=== PATIENT | female | born 1935 | race Caucasian/White ===

== ENCOUNTER 2019-10-27 11:31 | Emergency (ER) | payer OTHER ==
[~2019-10-27] VITALS: Ht 162.6 cm; Wt 49.2 kg
[~2019-10-27 11:31] MED LIST: ADVIL MIGRAINE200 M1 PO; ASPIR 8181 MG PO; COQ-10100 MG PO; COZAAR100 MG PO; DIAZEPAM2 MG PO; FISH OIL 1,001000 M2 PO; FLONASE 0.05%50 MCG NASAL; HYDROCODON-ACE1 EAC7 PO; LEVOTHYROXIN0.075 MG PO; LEVOTHYROXINE0.05 MG PO; MULTI VITAMIN1 EACH PO; PREDNISONE 10 M10 MG PO; TYLENOL325 MG PO; UNICOMPLEX M TA1 TA1; VICODIN 5-3001 EACH
[2019-10-27 11:51] LABS: HEMATOCRIT 34.8 % (37.0-47.0); HEMOGLOBIN 11.4 gm/dL (12.0-15.0); MCH 30.7 pg (26.0-34.0); MCHC 32.9 g/dL (28.0-37.0); MCV 93.5 fL (80.0-100.0); PLATELET COUNT 246 thou/uL (150-400); RBC 3.72 mil/uL (4.20-5.00); RDW 13.3 % (10.5-14.5); WBC 3.6 thou/uL (4.0-11.0)
[2019-10-27 12:11] LABS: ANION GAP 7 mmol/L (7-16); BUN 25 mg/dL (7-18); CALCIUM 9.2 mg/dL (8.5-10.1); CHLORIDE 102 mmol/L (98-107); CO2 30 mmol/L (21-32); CREATININE 1.4 mg/dL (0.6-1.0); GLUCOSE 163 mg/dL (74-106); POTASSIUM 3.8 mmol/L (3.5-5.1); SODIUM 139 mmol/L (136-145)
[2019-10-27 12:22] LABS: ALBUMIN 3.3 g/dL (3.4-5.0); SGOT 27 U/L (15-37); SGPT 22 U/L (30-65); TOTAL BILIRUBIN 0.4 mg/dL (0.2-1.0); TOTAL PROTEIN 6.8 g/dL (6.4-8.2); TROPONIN-I <0.06 ng/mL (<0.06)
[2019-10-27 13:02] LABS: APTT 30.6 Seconds (24.5-32.8); PROTIME 10.2 Seconds (9.3-11.4)
[2019-10-27 13:30] LABS: ABSOLUTE NEUTROPHILS 2.6 thou/uL (1.4-8.2); PLATELET ESTIMATE NORMAL
[2019-10-27 13:42] LABS: URINE BILIRUBIN NEGATIVE (Negative); URINE BLOOD NEGATIVE (Negative); URINE CLARITY CLEAR; URINE COLOR YELLOW; URINE GLUCOSE-RANDOM* NEGATIVE (Negative); URINE KETONES NEGATIVE (Negative); URINE LEUKOCYTES-REFLEX 1+ (Negative); URINE NITRITE-REFLEX NEGATIVE (Negative); URINE PROTEIN (DIPSTICK) NEGATIVE (Negative); URINE UROBILINOGEN 0.2 E.U./dl (0.2-1.0)
[2019-10-27 13:54] LABS: BACTERIA-REFLEX 1-9 Few /HPF (None Seen); CASTS None Seen /LPF (None Seen); CRYSTALS None Seen /LPF (None Seen); SQUAMOUS 4-10 Moderate /LPF (0-3); URINE RBC 3-10 Few /HPF (0-2); URINE WBC-REFLEX 0-5 Rare /HPF (0-5)
[2019-10-27 15:31] VITALS: BP 131/53
== END 2019-10-27 15:32 | disposition home or self-care (01) ==
LOC: ER 11:31
PROVIDERS: Emergency Medicine
DX: S30.1XXA Contusion of abdominal wall, initial encounter (principal); D64.9 Anemia, unspecified; D72.819 Decreased white blood cell count, unspecified; R73.9 Hyperglycemia, unspecified; I12.9 Hypertensive chronic kidney disease with stage 1 through stage 4 chronic kidney disease, or unspecified chronic kidney disease; N18.9 Chronic kidney disease, unspecified; E03.9 Hypothyroidism, unspecified; E78.5 Hyperlipidemia, unspecified; Z95.1 Presence of aortocoronary bypass graft; Z90.710 Acquired absence of both cervix and uterus; Z79.82 Long term (current) use of aspirin; Z79.899 Other long term (current) drug therapy; Z88.1 Allergy status to other antibiotic agents; Z88.2 Allergy status to sulfonamides; Z88.8 Allergy status to other drugs, medicaments and biological substances; Z91.041 Radiographic dye allergy status; X58.XXXA Exposure to other specified factors, initial encounter; Y93.89 Activity, other specified; Y92.89 Other specified places as the place of occurrence of the external cause; Y99.8 Other external cause status

== ENCOUNTER 2019-11-06 22:45 | Emergency (ER) | payer OTHER ==
[~2019-11-06] VITALS: Ht 162.6 cm; Wt 54.4 kg
[2019-11-06 23:28] LABS: ABSOLUTE NEUTROPHILS 9.5 thou/uL (1.4-8.2); BASOPHILS 0.2 % (0.0-2.0); EOSINOPHILS 1.1 % (0.0-3.0); HEMATOCRIT 38.1 % (37.0-47.0); HEMOGLOBIN 12.7 gm/dL (12.0-15.0); LYMPHOCYTES 4.2 % (24.0-44.0); MCH 30.6 pg (26.0-34.0); MCHC 33.4 g/dL (28.0-37.0); MCV 91.8 fL (80.0-100.0); MONOCYTES 6.7 % (1.0-8.0); PLATELET COUNT 371 thou/uL (150-400); POLYS 87.8 % (36.0-66.0); RBC 4.15 mil/uL (4.20-5.00); WBC 10.9 thou/uL (4.0-11.0)
[2019-11-06 23:32] LABS: CALCIUM 8.6 mg/dL (8.5-10.1); CREATININE 1.6 mg/dL (0.6-1.0); POTASSIUM 4.6 mmol/L (3.5-5.1)
[2019-11-06 23:40] LABS: URINE BILIRUBIN NEGATIVE (Negative); URINE BLOOD NEGATIVE (Negative); URINE CLARITY CLEAR; URINE COLOR YELLOW; URINE GLUCOSE-RANDOM* NEGATIVE (Negative); URINE KETONES 1+ (Negative); URINE LEUKOCYTES-REFLEX NEGATIVE (Negative); URINE NITRITE-REFLEX NEGATIVE (Negative); URINE PROTEIN (DIPSTICK) 1+ (Negative); URINE SPECIFIC GRAVITY 1.015 (1.005-1.035); URINE UROBILINOGEN 0.2 E.U./dl (0.2-1.0)
[2019-11-07 00:32] LABS: BACTERIA-REFLEX 1-9 Few /HPF (None Seen); CRYSTALS None Seen /LPF (None Seen); HYALINE CASTS 4-10 Moderate /LPF (None Seen); MUCUS 4-6 Moderate strn/LPF (None Seen); SQUAMOUS 0-3 Few /LPF (0-3); URINE RBC 0-2 Rare /HPF (0-2); URINE WBC-REFLEX 0-5 Rare /HPF (0-5)
[2019-11-07 03:59] VITALS: BP 103/47
== END 2019-11-07 03:50 | disposition home or self-care (01) ==
LOC: ER 22:45
PROVIDERS: Emergency Medicine
DX: U07.1 COVID-19 (principal); R41.0 Disorientation, unspecified; M79.672 Pain in left foot; E03.9 Hypothyroidism, unspecified; I10 Essential (primary) hypertension; E78.5 Hyperlipidemia, unspecified; F41.9 Anxiety disorder, unspecified; Z88.1 Allergy status to other antibiotic agents; Z91.040 Latex allergy status; Z90.711 Acquired absence of uterus with remaining cervical stump; Z98.61 Coronary angioplasty status; Z79.899 Other long term (current) drug therapy; Z88.2 Allergy status to sulfonamides

== ENCOUNTER 2020-07-23 11:33 | Inpatient (IN) | payer OTHER ==
[~2020-07-23] VITALS: Ht 167.6 cm; Wt 55.1 kg
[2020-07-23 11:40] VITALS: BP 106/55
[2020-07-23 12:22] LABS: ABSOLUTE NEUTROPHILS 8.2 thou/uL (1.4-8.2); BASOPHILS 0.2 % (0.0-2.0); EOSINOPHILS 2.6 % (0.0-3.0); HEMATOCRIT 39.7 % (37.0-47.0); HEMOGLOBIN 13.1 gm/dL (12.0-15.0); LYMPHOCYTES 1.8 % (24.0-44.0); MCH 29.8 pg (26.0-34.0); MCV 90.5 fL (80.0-100.0); MONOCYTES 4.8 % (1.0-8.0); PLATELET COUNT 199 thou/uL (150-400); POLYS 90.6 % (36.0-66.0); RBC 4.39 mil/uL (4.20-5.00); RDW 14.3 % (10.5-14.5); WBC 9.1 thou/uL (4.0-11.0)
[2020-07-23 12:30] LABS: CALCIUM 7.9 mg/dL (8.5-10.1); CREATININE 1.5 mg/dL (0.6-1.0); POTASSIUM 3.5 mmol/L (3.5-5.1)
[2020-07-23 12:36] LABS: ALBUMIN 2.5 g/dL (3.4-5.0); TOTAL BILIRUBIN 0.5 mg/dL (0.2-1.0); TOTAL PROTEIN 5.8 g/dL (6.4-8.2)
[2020-07-23 13:03] LABS: URINE BILIRUBIN NEGATIVE (Negative); URINE BLOOD 3+ (Negative); URINE COLOR YELLOW; URINE GLUCOSE-RANDOM* NEGATIVE (Negative); URINE KETONES NEGATIVE (Negative); URINE NITRITE-REFLEX NEGATIVE (Negative); URINE PROTEIN (DIPSTICK) 2+ (Negative); URINE SPECIFIC GRAVITY 1.025 (1.005-1.035); URINE UROBILINOGEN 0.2 E.U./dl (0.2-1.0)
[2020-07-23 13:04] LABS: URINE CLARITY CLOUDY; URINE LEUKOCYTES-REFLEX 2+ (Negative)
[2020-07-23 13:16] LABS: SQUAMOUS 4-10 Moderate /LPF (0-3)
[2020-07-23 13:17] LABS: COARSE GRANULAR CASTS 0-3 Few /LPF (None Seen); MUCUS 4-6 Moderate strn/LPF (None Seen)
[2020-07-23 13:18] LABS: CRYSTALS None Seen /LPF (None Seen); URINE RBC 0-2 Rare /HPF (0-2); URINE WBC-REFLEX >25 Many /HPF (0-5); WBC CLUMPS Packed (None Seen)
[2020-07-23 15:01] VITALS: BP 113/61
[2020-07-23] MEDS ORDERED: PRALUENT P75 MG/1 ML SUBQ (15:40)
[2020-07-23] MEDS ORDERED: CARVEDILOL12.5 MG PO (15:41)
[2020-07-23] MEDS ORDERED: FUROSEMIDE 20 M20 M1 PO (15:41)
[2020-07-23] MEDS ORDERED: DIAZEPAM2 MG PO (15:41)
[2020-07-23] MEDS ORDERED: GABAPENTIN 100100 MG PO (15:42)
[2020-07-23 15:43] VITALS: BP 124/63
[2020-07-23 16:11] VITALS: BP 139/83
--- NOTE | 2020-07-23 16:57 | EKG ---
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 : 1935 Requested By: Shayla Lam Order Number: [id number] MD: Armando Subramanian Measurements Intervals [place] Rate: 81 P: -6 MA: 202 QRS: 44 QRSD: 96 T: 29 QT: 369 QTc: 429 Interpretive Statements Sinus rhythm Atrial premature complex Probable anteroseptal infarct, old Compared to ECG 08/22/2013 16:03:08 Atrial premature complex(es) now present Septal Q waves are now present Electronically Signed On 07-23-2020 16:57:47 CDT by Armando Subramanian [email or web address] <ELECTRONICALLY SIGNED> By: Armando Subramanian MD, [facility] 07/23/20 1657 1242 [id number] Armando Subramanian MD, [facility] /EPI
[2020-07-23 19:43] VITALS: BP 118/70
--- NOTE | 2020-07-23 19:49 | NUR ---
RECEIVED PT FROM ER. PT IS AXOX4, FORGETFUL, DENIES PAIN. ADMISSION COMPLETED. PT NEEDS REINFORCEMENT OF USING CALL LIGHT TO TOILET. PT UP X1 TO BSC. VSS, AFEBRILE, SR ON MONITOR. FALL PRECAUTIONS IN PLACE. POC IS TO MONITOR VS, CONTINUE ABX PROTOCOL FOR INFECTION. NO CONCERNS AT THIS TIME.
[2020-07-23 23:35] VITALS: BP 134/73
--- NOTE | 2020-07-24 00:48 | NUR ---
2345 SPOKE WITH SON GEOFF FOR 15 MIN. PATIENT OK TO GIVE CODE AND TALK WITH SON.
[2020-07-24 03:32] VITALS: BP 104/52
--- NOTE | 2020-07-24 04:10 | NUR ---
SLEPT MOST OF SHIFT. DENIES COMPLAINTS OF PAIN OR SHORTNESS OF AIR. ASSIST UP TO COMODE NEEDED FOR SAFETY. WORKING ON GOALS AND PLAN OF CARE FOR NOC. REMAINS ORIENTED X4 BUT FORGETFULL. PROGRESSING TOWARDS DISCHARGE GOALS SLOWLY. CONTINUE TO ASSES CLOSELY. MAINTAIN SAFETY.
[2020-07-24 04:11] LABS: CALCIUM 7.2 mg/dL (8.5-10.1); CREATININE 1.1 mg/dL (0.6-1.0); POTASSIUM 3.2 mmol/L (3.5-5.1)
[2020-07-24 04:42] LABS: HEMATOCRIT 34.7 % (37.0-47.0); HEMOGLOBIN 11.4 gm/dL (12.0-15.0); MCH 29.7 pg (26.0-34.0); MCHC 32.9 g/dL (28.0-37.0); MCV 90.4 fL (80.0-100.0); RBC 3.83 mil/uL (4.20-5.00)
[2020-07-24 08:30] VITALS: BP 137/84
--- NOTE | 2020-07-24 14:47 | NUR ---
PT IS AXOX3, PLEASANT; PT FORGETFUL OF TIME AND DAY. PT IS MST, VSS, AFEBRILE. PT IS SR ON MONITOR. DR STEVENS CONSULTED. PT FAMILY AT BEDSIDE THIS AFTERNOON. POC IS TO CONTINUE ABX THERAPY, PT/OT TO WORK WITH PT. PT IS UPX1 TO BSC. FALL PRECAUTIONS IN PLACE. FREQUENT ROUNDING.
[2020-07-24 15:05] VITALS: BP 141/78
[2020-07-24 19:10] VITALS: BP 149/74
--- NOTE | 2020-07-25 03:56 | NUR ---
SAT UP IN CHAIR UNTIL 2200 WATCHING TV. SLEPT PART OF SHIFT. DENIES COMPLAINTS OF PAIN OR SHORTNESS OF AIR. WORKING ON GOALS AND PLAN OF CARE FOR NOC. ASSIST UP TO COMODE NEEDED WITH ONE ASSIST. PROGRESSING SLOWLY TOWARDS DISCHARGE GOALS. DAY RN STATED FAMILY TOOK PATIENTS BELONGINGS HOME YESTERDAY. CONTINUE TO ASSES CLOSELY AND MAINTAIN SAFE ENVIRONMENT.
[2020-07-25 04:15] VITALS: BP 146/65
[2020-07-25 08:04] VITALS: BP 155/74
[2020-07-25 15:32] VITALS: BP 159/70
[2020-07-25 19:11] VITALS: BP 133/68
[2020-07-26 03:10] LABS: CALCIUM 7.7 mg/dL (8.5-10.1); MAGNESIUM 1.9 mg/dL (1.8-2.4); POTASSIUM 4.4 mmol/L (3.5-5.1)
[2020-07-26 05:04] VITALS: BP 142/76
--- NOTE | 2020-07-26 08:16 | NUR ---
HEART RATE IN THE 40'S LAST NIGHT.DENIES PAIN AND SOB.SON CALLED TO CHECK STATUS OF PATIENT.PT STATES SHE SLEPT GOOD.MONITOR SHOWS SB.POC CONTINUED.
[2020-07-26 08:21] VITALS: BP 154/80
[2020-07-26 10:48] VITALS: BP 150/72
--- NOTE | 2020-07-26 13:40 | NUR ---
Met with patient who resides at home with son. She admits to hospital for stemi. Patient resides in home with son. She has 3 flights of steps with 7 steps and landing to her bedroom and bath. She reports uses no assistive device in home. She uses a cane in community. She cont to drive short distances. She reports her son a peditrician and not home all of time. She reports she does not cook eat out often. Discussed post acute care with patient/ dtr. Therapy reports patient could benefit from post acute care. Referral to [facility] as first choice 2nd choice is [facility].
--- NOTE | 2020-07-26 14:29 | NUR ---
FAXED REFERRAL TO [facility] RECEIVED CONFIRMATION AND LEFT MSG WITH [facility] IN ADM THAT IF SHE CAN ACCEPT TO SUBMIT FOR AUTH.
--- NOTE | 2020-07-26 14:51 | NUR ---
FAXED REFERRAL TO [facility] SPOKE WITH SIL[facility]STRE IN ADM SHE RECEIVED UPDATE AND WILL SUBMIT FOR AUTH. DP TO FOLLOW.
[2020-07-26 15:30] VITALS: BP 151/76
--- NOTE | 2020-07-26 16:42 | NUR ---
[facility] accepting they are submitting for auth.
[2020-07-26 20:54] VITALS: BP 153/82
[2020-07-27 03:26] VITALS: BP 147/78
--- NOTE | 2020-07-27 07:02 | NUR ---
COVID TEST NEGATIVE.PATIENT UP TO THE BATHROOM WITH CANE.HEART RATE IS VERY LOW IN THE 37'S TO 40'S;PT ASYMPTOMATIC.DENIES PAIN AND SOB. POSSIBLE DISCHARGE TODAY.REPORT GIVEN TO DAY SHIFT RN.
[2020-07-27 08:29] VITALS: BP 195/91
[2020-07-27 12:11] VITALS: BP 150/60
--- NOTE | 2020-07-27 13:34 | NUR ---
At this time no auth rec for [facility]. Sp with dtr at bedside yesterday. Patient has rec vaccination and Covid recovered October 2019. Updated dtr on visiting hours at [facility].
[2020-07-27 14:52] VITALS: BP 166/59
--- NOTE | 2020-07-27 16:40 | NUR ---
FAXED COVID RESULT TO [facility] RECEIVED CONFIRMATION.
--- NOTE | 2020-07-27 17:21 | NUR ---
At this time no auth rec. Left message on dtrs cell phone.
--- NOTE | 2020-07-27 17:46 | NUR ---
AWAITING AUTHORIZATION FOR PLACEMENT TO SNF. PT TOLERATED PO WELL AND AMBULATED TO BATHROM WITH 1 ASSIST ANS CANE. WILL CONTINUE TO ASSESS.
[2020-07-27 20:06] VITALS: BP 165/58
--- NOTE | 2020-07-27 22:08 | NUR ---
2114 INFORMED SON GEOFF OF TRANSFER TO 4TH FLOOR. INFORMED TO CALL BEFORE COMING IN TO FIND OUT ROOM NUMBER IN AM. PATIENT INFORMED OF MOVE AND TELEMETRY DC. 0 REPORT CALLED TO FRANCISCO ALVAREZ ON 4S. TRANSFERED PER BED. PATIENT WITHOUT COMPLAINTS
--- NOTE | 2020-07-28 01:30 | NUR ---
PT TRANSFRRED FROM 2 NORTH. A&OX3 FORGETFULL. UP WITH ASSISTX1 TO THE BATHROOM. PT DENIES PAIN, N/V. SOMETIMES INCONTINENT OF BLADDER. FALL PREC IN PLACE AND CALL LIGHT AT REACH, WILL CONT TO MONITOR.
[2020-07-28 08:50] VITALS: BP 161/79
--- NOTE | 2020-07-28 10:23 | NUR ---
ASSUMED PT CARE THIS AM. PT IS ALERT & ORIENTED X4. PT HAS IV SITE ON L AC. PT TOLERATED MED WELL. PT IS ON ROOM AIR. PT DENIES PAIN, NAUSE AND VOMITING. PT IS UP WITH ASSIST X1. WAITING FOR INSURANCE AUTHORIZATION FOR DISCHARGE PENDING TODAY. PT ON THE BED WATCHING TV, BED ON THE LOWEST POSITION, SIDE RAILS UP, CALL LIGHT WITHIN REACH. WILL CONTINUE TO MONITOR PT. FOLLOW POC.
[2020-07-28] MEDS ORDERED: COZAAR100 MG PO (12:31)
[2020-07-28] MEDS ORDERED: CEFUROXIME250 MG PO (12:31)
[2020-07-28] MEDS ORDERED: MEDROLDOSEPACK PO (12:31)
--- NOTE | 2020-07-28 12:41 | NUR ---
ON-GOING ASSESSMENT: CM REVIEWED CHART AND SPOKE WITH PATIENT AND HER DAUGHTER. PT IS STABLE TO DISCHARGE TO SNF TODAY. CM SPOKE WITH TORI RIVERS AT [facility] WHO REPORTS THEY HAVE INSURANCE AUTH AND CAN ACCEPT PT TODAY. CM FAXED DISCHARGE ORDERS TO [facility] AND CONFIRMED THEY RECEIVED ALONG WITH NEGATIVE COVID TEST. TRANSPORTATION HAS BEEN ARRANGED FOR 1500. CM NOTIFIED BEDSIDE RN AND PATIENT WELL HER DAUGHTER. PT REPORTS NO FURTHER NEEDS FROM CM PRIOR TO DISCHARGE. CASE CLOSED.
== END 2020-07-28 17:41 | DRG 871 ==
LOC: ER 11:33 → 2N 13:46 → EROBS 13:46 → 2N 15:58 → 4S 07-27 21:50
PROVIDERS: Internal Medicine; Physician Assistant; ADMIT Hospitalist; ATTEND Hospitalist
DX: A41.9 Sepsis, unspecified organism (principal); N17.0 Acute kidney failure with tubular necrosis; G92 Toxic encephalopathy; N39.0 Urinary tract infection, site not specified; M02.30 Reiter's disease, unspecified site; Z68.1 Body mass index [BMI] 19.9 or less, adult; E44.0 Moderate protein-calorie malnutrition; E03.9 Hypothyroidism, unspecified; E78.5 Hyperlipidemia, unspecified; Z20.822 Contact with and (suspected) exposure to COVID-19; F41.9 Anxiety disorder, unspecified; N18.9 Chronic kidney disease, unspecified; R65.20 Severe sepsis without septic shock; R53.81 Other malaise; I12.9 Hypertensive chronic kidney disease with stage 1 through stage 4 chronic kidney disease, or unspecified chronic kidney disease; F03.90 Unspecified dementia, unspecified severity, without behavioral disturbance, psychotic disturbance, mood disturbance, and anxiety; E87.6 Hypokalemia; Z95.1 Presence of aortocoronary bypass graft; Z90.710 Acquired absence of both cervix and uterus; Z88.2 Allergy status to sulfonamides; Z88.8 Allergy status to other drugs, medicaments and biological substances; Z88.1 Allergy status to other antibiotic agents; Z91.040 Latex allergy status; Z79.899 Other long term (current) drug therapy
CPT/HCPCS: 10081; 10102